=== PATIENT | female | born 1960 | race Caucasian/White ===

== ENCOUNTER 2020-09-03 09:54 | Inpatient (IN) ==
[2020-09-03 10:41] LABS: POC Blood Urea Nitrogen 4 mg/dL (6-20); POC CO2 24 mmol/L (22-30); POC Calcium, Ionized 1.07 mmEq/L (1.16-1.32); POC Chloride 74 mEq/L (96-108); POC Creatinine 0.4 mg/dL (0.6-1.2); POC Glucose, Random 108 mg/dL (70-105); POC Hematocrit 44 % (36-48); POC Potassium 3.8 mEql/L (3.3-5.1); POC Sodium 111 mEq/L (133-145)
--- NOTE | 2020-09-03 10:55 | Emergency Department Note ---
HPI General Chief complaint: Recheck/Abnormal Lab/Rx Stated complaint: low sodium Time Seen by Provider: 09/03/20 10:08 Source: patient Mode of arrival: ambulatory Limitations: no limitations History of Present Illness HPI Narrative: Patient is a 60-year-old lady who arrives the emergency department accompanied by her complaining of hyponatremia. History is provided by the patient and review of her medical records. Patient was seen in our emergency department yesterday for cough and shortness of breath. Labs were obtained but due to computer dysfunction the labs did not crossover into the charting system immediately. Her shortness of breath improved with nebulizer treatment and she was discharged home. Upon reviewing laboratory results this morning, I noted that the patient's sodium was 118. I called and asked her to come to the emergency department to have this rechecked. The patient does note that she has been feeling very tired lately and has had a few episodes of near syncope over the past few weeks. She says her breathing feels better today. She denies any headache or confusion and her has not noted any signs of confusion recently. She has never had anything like this before. She has been having normal oral intake and has not been outside in the heat very much. Related Data Home Medications Medication Instructions Recorded Confirmed ergocalciferol (vitamin D2) 50,000 unit PO WEEKLY 09/21/18 08/11/20 Previous Rx's Medication Instructions Recorded fluticasone propionate 50 2 spray INTRANASAL DAILY #36.4 ml 06/29/19 mcg/actuation nasal spray,suspension atorvastatin 20 mg tablet 20 mg PO HS #90 tab 11/26/19 metoprolol succinate 50 mg See Rx Instructions .ROUTE 04/24/20 tablet,extended release 24 hr .COMPLEX #90 tab omeprazole 40 mg capsule,delayed 40 mg PO QDAY #90 cap 04/27/20 release triamcinolone acetonide 0.5 % 1 applic TOPICAL BID #30 g 04/27/20 topical ointment venlafaxine 75 mg capsule,extended See Rx Instructions .ROUTE 05/04/20 release 24 hr .COMPLEX #90 cap albuterol sulfate 90 mcg/actuation See Rx Instructions .ROUTE 07/04/20 breath activated powder inhaler .COMPLEX #1 ea diltiazem HCl 300 mg 300 mg PO QAM #90 cap 08/11/20 capsule,extended release 24 hr mirabegron 25 mg tablet,extended 25 mg PO Q24H #30 tab 08/11/20 release 24 hr oxycodone-acetaminophen 10 mg-325 1 tab PO Q4-6HP PRN #150 tab 08/24/20 mg tablet gabapentin 600 mg tablet See Rx Instructions .ROUTE 09/01/20 .COMPLEX #90 tab albuterol sulfate 2 puff INHALATION Q4H PRN #6.7 g 09/02/20 prednisone 60 mg PO QDAY #15 tab 09/02/20 Allergies Allergy/AdvReac Type Severity Reaction Status Date / Time hydromorphone [From Dilaudid] Allergy Severe Unknown Verified 09/03/20 09:56 prednisone Allergy Intermediate Unknown Verified 09/03/20 09:56 Review of Systems ROS ROS Narrative: Narrative: All systems ED: reviewed and negative except as stated. Constitutional: Denies fever and chills Respiratory: Reports shortness of breath and cough Gastrointestinal: Denies abdominal pain, nausea and diarrhea PFSH Narrative Patient History Narrative: Narrative: Medical/Surgical/Family History All Active Problems (Updated 09/03/20 @ 11:15 by Meet Mcmanus DO) Acute bronchitis (Acute) Chronic hyponatremia (Acute) Nocturia (Acute) Cough (Acute) Menometrorrhagia (Chronic) Fatigue (Chronic) Menopausal symptoms (Chronic) Urticaria (Chronic) Dermatitis (Chronic) Anxiety (Chronic) Postmenopausal (Chronic) Sleep apnea (Chronic) Ankle pain (Chronic) Vitamin D deficiency (Chronic) Hyperlipidemia (Chronic) Headache (Chronic) Hypertension (Chronic) Smoker (Chronic) Urinary frequency (Chronic) Impaired fasting glucose (Chronic) Leg pain (Chronic) Chronic pain (Chronic) Encounter for long-term current use of medication (Chronic) Stress (Chronic) Complex regional pain syndrome i of left lower limb (Chronic) Physical exam (Chronic) Colonic polyp (Chronic) Medical History (Updated 09/03/20 @ 11:15 by Meet Mcmanus DO) Ankle pain Anxiety Chronic pain CHRONIC PAIN - ON DAILY NARCOTICS (ICD-338.29) (YYU42-S11.29) Colonic polyp Complex regional pain syndrome i of left lower limb Dermatitis Encounter for long-term current use of medication Fatigue Headache Hyperlipidemia Hypertension Impaired fasting glucose Leg pain Menometrorrhagia Menopausal symptoms Physical exam Postmenopausal Sleep apnea Smoker Stress Urinary frequency Urticaria Vitamin D deficiency Surgical History Ankle fracture, left (~2007) left ankle fracture, with surgical repair History of cholecystectomy History of total abdominal hysterectomy (~2007) Cervicle precancer Family History Family/Other , Aunt of pulmonary fibrosis, also had breast CA Breast CA Pulmonary fibrosis Mother , of pulmonary fibrosis, also had breast CA Pulmonary fibrosis Breast CA Family/Other , Cousin - ovarian cancer, 47 Ovarian cancer Father Alcoholism Grandfather Suicide Grandmother Murder Social History Smoking Status: Current every day smoker Alcohol Intake Frequency: a few times a week Substance Use: does not use Exam Narrative Narrative: Gen -patient is awake and alert and in no acute distress. HEENT -head is atraumatic. There is no conjunctival pallor or scleral icterus. CV -S1-S2 regular rate and rhythm. Resp -breathing is nonlabored. Lungs have mild rhonchi bilaterally with expiratory wheezes there is no cyanosis. Derm -skin is warm and dry. MSK -present extremities are atraumatic. Psych -patient has appropriate affect. Neuro -patient answers questions appropriately with fluent speech. Patient moves all present extremities equally. General Limitations: no limitations Course Vital Signs Vital signs: Vital Signs Temperature 97.0 F 09/03/20 09:54 Pulse Rate 87 09/03/20 09:54 Respiratory Rate 18 09/03/20 09:54 Blood Pressure 155/77 09/03/20 09:54 Pulse Oximetry (%) 96 09/03/20 09:54 Temperature 97.0 F 09/03/20 09:54 Pulse Rate 75 09/03/20 10:28 Respiratory Rate 22 09/03/20 10:28 Blood Pressure 155/77 09/03/20 09:54 Pulse Oximetry (%) 96 09/03/20 09:54 [facility] MDM Narrative Medical decision making narrative: Patient presents with hyponatremia. She has been having some intermittent fatigue lately but otherwise has no symptoms consistent with neurocognitive effects from the hyponatremia at this time. I discussed the test results with the patient and her . She is agreeable with the plan for admission and gradual correction of her sodium. I discussed the patient's history examination and diagnostic findings with Dr. Couch, who agrees with the plan of care and accepts admission. I did not provide any separately billable critical care time. Lab Data Result diagrams: 09/03/20 10:18 Labs: Lab Results 09/03/20 Range/Units 10:18 POC Hct 44 (36-48) % POC Sodium 111 L* (133-145) mEq/L POC Potassium 3.8 (3.3-5.1) mEql/L POC Chloride 74 L (96-108) mEq/L POC Total CO2 24 (22-30) mmol/L POC BUN 4 L (6-20) mg/dL POC Creatinine 0.4 L (0.6-1.2) mg/dL POC Glucose 108 H (70-105) mg/dL POC WB Ioniz Calcium 1.07 L (1.16-1.32) mmEq/L EKG Data EKG #1: EKG attestation: Yes I reviewed and interpreted this EKG. EKG results narrative: EKG performed at 11:07 AM: Sinus rhythm, rate 81. Normal P wave QRS and T wave morphology. No ST segment deviation. Normal IA QRS and QTc duration. No old EKG immediately available for comparison. EKG was interpreted by me. Discharge Plan Patient/Caregiver Discharge Instructions Pt seen by [facility]ER/PA only: No Clinical Impression: Chronic hyponatremia Patient Disposition: Xfer Acute Care Hospital Condition: Fair Follow up with: Kayy Moore ARNP [Primary Care Provider] - Prescriptions: No Action fluticasone propionate 50 mcg/actuation spray,suspension 2 spray INTRANASAL DAILY Qty: 36.4 RF: 1 atorvastatin 20 mg tablet 20 mg PO HS Qty: 90 RF: 3 metoprolol succinate 50 mg tablet extended release 24 hr See Rx Instructions .ROUTE .COMPLEX Qty: 90 RF: 2 venlafaxine 75 mg capsule,extended release 24hr See Rx Instructions .ROUTE .COMPLEX Qty: 90 RF: 1 ProAir RespiClick 90 mcg/actuation aerosol powdr breath activated See Rx Instructions .ROUTE .COMPLEX Qty: 1 RF: 1 oxycodone-acetaminophen 10-325 mg tablet 1 tab PO Q4-6HP PRN (Reason: Pain) Qty: 150 RF: 0 gabapentin 600 mg tablet See Rx Instructions .ROUTE .COMPLEX Qty: 90 RF: 0 omeprazole 40 mg capsule,delayed release(DR/EC) 40 mg PO QDAY Qty: 90 RF: 3 triamcinolone acetonide 0.5 % ointment 1 applic topical BID Qty: 30 RF: 1 Myrbetriq 25 mg tablet extended release 24 hr 25 mg PO Q24H Qty: 30 RF: 3 diltiazem HCl 300 mg capsule,extended release 24hr 300 mg PO QAM Qty: 90 RF: 3 ergocalciferol (vitamin D2) 50,000 UNIT capsule 50,000 unit PO WEEKLY RF: 0 albuterol sulfate 90 mcg/actuation HFA aerosol inhaler 2 puff inhalation Q4H PRN (Reason: shortness of breath or wheezing) Qty: 6.7 RF: 0 prednisone 20 mg tablet 60 mg PO QDAY Qty: 15 RF: 0
[2020-09-03 11:37] LABS: Basophils # (Auto) 0.03 K/mcL (0.00-0.20); Basophils % (Auto) 0.2 % (0.0-2.0); Eosinophils # (Auto) 0.11 K/mcL (0.00-0.70); Eosinophils % (Auto) 0.6 % (0.0-7.0); Hematocrit 38.2 % (36.0-48.0); Hemoglobin 13.5 g/dL (12.0-15.0); Lymphocytes % (Auto) 17.4 % (15.0-49.0); Mean Cell Volume 88.2 fL (80.0-100.0); Mean Corpuscular HGB Conc 35.3 g/dL (31.0-36.0); Monocytes # (Auto) 1.14 K/mcL (0.10-0.90); Monocytes % (Auto) 6.6 % (1.0-12.0); Neutrophils % (Auto) 75.2 % (38.0-78.0); Platelet Count 298 K/mcL (140-440); RBC 4.33 M/mcL (4.00-5.20); Red Cell Distribution Width 11.4 % (11.5-14.5); WBC 17.2 K/mcL (4.5-11.0)
[2020-09-03] MEDS ORDERED: ONDANSETRON 4 MG/2 ML VIAL IV PRN (13:11)
[2020-09-03] MEDS ORDERED: 0.9 % SODIUM CHLORIDE 1,000 ML IV SCH ×2 (13:11→18:30)
[2020-09-03] MEDS: 0.9 % SODIUM CHLORIDE 10 ML SYRINGE IV SCH ×2 (13:28→22:00)
[2020-09-03] MEDS ORDERED: IPRATROPIUM/ALBUTEROL 3 ML AMPUL.NEB NEB PRN (13:50)
[2020-09-03 15:32] LABS: Sodium, Urine Random 12 mmol/L
[2020-09-03 15:38] LABS: Osmolality,Urine 140 mOSM/kg (80-1000)
[2020-09-03 16:10] LABS: Blood Urea Nitrogen 4 mg/dL (6-20); Carbon Dioxide 27 mmol/L (22-30); Chloride 73 mmol/L (96-108); Glomerular Filtration Rate 114; Glucose 102 mg/dL (70-105)
[2020-09-03] MEDS ORDERED: oxyCODONE/APAP 10/325MG TABLET PO PRN (16:17)
[2020-09-03] MEDS ORDERED: LABETALOL 5 MG/ML ML IV PRN (16:24)
[2020-09-03] MEDS ORDERED: SODIUM CHLORIDE 3 % 500 ML IV SCH (16:30)
[2020-09-03] MEDS ORDERED: MIRABEGRON 25 MG PO SCH (16:30)
[2020-09-03] MEDS ORDERED: ALBUTEROL SULFATE 2.5 MG/3 ML NEBULIZER NEB PRN (16:34)
--- NOTE | 2020-09-03 16:34 | Internal Med History&Physical ---
HPI History of Present Illness Patient information: Note initiated : 09/03/20 at 4:31 pm Service Date, if different from initiated Date: [] Patient: Radha Valencia a 60 y/o F admitted on 09/03/20 for low sodium. Chief Complaint: [] History of present illness: Ms. Valencia is a 60 year old female history of laryngeal mass status post resection ago, hypertension, hyperlipidemia, chronic pain, GERD, depression who presented to the emergency department yesterday for shortness of breath. Patient was discharged to home with steroids and inhalers, laboratory work-up revealed severe hyponatremia therefore the patient was called to return to the emergency department and subsequently relation and management. Patient says that she has been feeling chronically more short of breath for about and that has been associated with severe fatigue and daytime sleepiness. She has also been experiencing bilateral lower extremity edema. In the emergency department, patient's vitals were stable on room air. After admission, she did have hypoxia when she fell asleep therefore placed on some oxygen supplementation. The patient feels generally unwell, her main complaint is shortness of breath. Review of systems Constitutional: positive for fatigue Eyes: no vision changes or pain Cardiovascular: no chest pain, no palpitations Respiratory: positive for dyspnea Gastrointestinal: no abdominal pain, no nausea, vomiting, or diarrhea Genitourinary: no dysuria or difficulty voiding Musculoskeletal: positive for lower extremity edema Integumentary: no skin lesion or wound Neurological: no focal weakness or numbness Psychiatric: no anxiety or depression Physical exam Head: Atraumatic, normal inspection. Eyes: normal appearance, no scleral icterus. Neck: full ROM Respiratory: Expiratory wheezes, no respiratory distress. Cardiovascular: normal rate and rhythm, S1, S2. GI/Abdominal: protuberant abdomen, soft, nontender, no guarding. Extremities: mild bilateral lower extermity edema Neurological: CN II-XII intact, intact motor, intact sensation. Psychiatric: normal mood. Skin: warm, normal color PFSH PFSH All Active Problems (Updated 09/03/20 @ 11:15 by Meet Mcmanus DO) Acute bronchitis (Acute) Chronic hyponatremia (Acute) Nocturia (Acute) Cough (Acute) Menometrorrhagia (Chronic) Fatigue (Chronic) Menopausal symptoms (Chronic) Urticaria (Chronic) Dermatitis (Chronic) Anxiety (Chronic) Postmenopausal (Chronic) Sleep apnea (Chronic) Ankle pain (Chronic) Vitamin D deficiency (Chronic) Hyperlipidemia (Chronic) Headache (Chronic) Hypertension (Chronic) Smoker (Chronic) Urinary frequency (Chronic) Impaired fasting glucose (Chronic) Leg pain (Chronic) Chronic pain (Chronic) Encounter for long-term current use of medication (Chronic) Stress (Chronic) Complex regional pain syndrome i of left lower limb (Chronic) Physical exam (Chronic) Colonic polyp (Chronic) Medical History (Updated 09/03/20 @ 11:15 by Meet Mcmanus DO) Ankle pain Anxiety Chronic pain CHRONIC PAIN - ON DAILY NARCOTICS (ICD-338.29) (HNJ01-U08.29) Colonic polyp Complex regional pain syndrome i of left lower limb Dermatitis Encounter for long-term current use of medication Fatigue Headache Hyperlipidemia Hypertension Impaired fasting glucose Leg pain Menometrorrhagia Menopausal symptoms Physical exam Postmenopausal Sleep apnea Smoker Stress Urinary frequency Urticaria Vitamin D deficiency Surgical History Ankle fracture, left (~2007) left ankle fracture, with surgical repair History of cholecystectomy History of total abdominal hysterectomy (~2007) Cervicle precancer Family History Family/Other , Aunt of pulmonary fibrosis, also had breast CA Breast CA Pulmonary fibrosis Mother , of pulmonary fibrosis, also had breast CA Pulmonary fibrosis Breast CA Family/Other , Cousin - ovarian cancer, 47 Ovarian cancer Father Alcoholism Grandfather Suicide Grandmother Murder Social History (Updated 08/11/20 @ 08:35 by Man Harris CMA) marital status: occupational status: employed occupation: works at [employer] physical activity: walking frequency: 1-2 times per week smoking status: Current every day smoker alcohol intake frequency: a few times a week substance use type: does not use MEDS/ALLERGIES Home Medications and Allergies Home Medications Medication Instructions Recorded Confirmed Type fluticasone propionate 50 2 spray INTRANASAL DAILY #36.4 ml 06/29/19 09/03/20 Rx mcg/actuation nasal spray,suspension atorvastatin 20 mg tablet 20 mg PO HS #90 tab 11/26/19 09/03/20 Rx metoprolol succinate 50 mg See Rx Instructions .ROUTE 04/24/20 09/03/20 Rx tablet,extended release 24 hr .COMPLEX #90 tab omeprazole 40 mg capsule,delayed 40 mg PO QDAY #90 cap 04/27/20 09/03/20 Rx release venlafaxine 75 mg capsule,extended See Rx Instructions .ROUTE 05/04/20 09/03/20 Rx release 24 hr .COMPLEX #90 cap albuterol sulfate 90 mcg/actuation See Rx Instructions .ROUTE 07/04/20 09/03/20 Rx breath activated powder inhaler .COMPLEX #1 ea diltiazem HCl 300 mg 300 mg PO QAM #90 cap 08/11/20 09/03/20 Rx capsule,extended release 24 hr mirabegron 25 mg tablet,extended 25 mg PO Q24H #30 tab 08/11/20 09/03/20 Rx release 24 hr oxycodone-acetaminophen 10 mg-325 1 tab PO Q4-6HP PRN #150 tab 08/24/20 09/03/20 Rx mg tablet gabapentin 600 mg tablet See Rx Instructions .ROUTE 09/01/20 09/03/20 Rx .COMPLEX #90 tab albuterol sulfate 2 puff INHALATION Q4H PRN #6.7 g 09/02/20 09/03/20 Rx prednisone 60 mg PO QDAY #15 tab 09/02/20 09/03/20 Rx Allergies Allergy/AdvReac Type Severity Reaction Status Date / Time hydromorphone [From Dilaudid] Allergy Unknown Unknown Verified 09/03/20 13:14 prednisone Allergy Unknown Unknown Verified 09/03/20 13:14 EXAM Constitutional Vitals: Temp Pulse Resp BP Pulse Ox 98.2 F 97 H 15 180/92 97 09/03/20 16:07 09/03/20 16:24 09/03/20 16:07 09/03/20 16:07 09/03/20 16:24 DATA Data Completed and Pending Labs: Labs from last 24 hours 09/03/20 09/03/20 09/03/20 14:30 13:27 11:15 WBC RBC Hgb Hct POC Hct MCV MCH MCHC RDW Plt Count MPV Neut % (Auto) Lymph % (Auto) Rush % (Auto) Eos % (Auto) Baso % (Auto) Lymph # (Auto) Rush # (Auto) Eos # (Auto) Baso # (Auto) Absolute Neutrophils POC Sodium Sodium 109 L* POC Potassium Potassium 3.9 POC Chloride Chloride 73 L Carbon Dioxide 27 POC Total CO2 Anion Gap 9.0 POC BUN BUN 4 L Creatinine 0.4 L POC Creatinine GFR Calculation 114 Glucose 102 POC Glucose Calcium 9.0 POC WB Ioniz Calcium Magnesium 1.8 Urine Osmolality 140 Ur Random Sodium 12 40 09/03/20 09/03/20 10:18 10:18 WBC 17.2 H RBC 4.33 Hgb 13.5 Hct 38.2 POC Hct 44 MCV 88.2 MCH 31.2 MCHC 35.3 RDW 11.4 L Plt Count 298 MPV 9.0 Neut % (Auto) 75.2 Lymph % (Auto) 17.4 Rush % (Auto) 6.6 Eos % (Auto) 0.6 Baso % (Auto) 0.2 Lymph # (Auto) 3.00 Rush # (Auto) 1.14 H Eos # (Auto) 0.11 Baso # (Auto) 0.03 Absolute Neutrophils 12.95 H POC Sodium 111 L* Sodium POC Potassium 3.8 Potassium POC Chloride 74 L Chloride Carbon Dioxide POC Total CO2 24 Anion Gap POC BUN 4 L BUN Creatinine POC Creatinine 0.4 L GFR Calculation Glucose POC Glucose 108 H Calcium POC WB Ioniz Calcium 1.07 L Magnesium Urine Osmolality Ur Random Sodium A/P Narrative A/P Narrative: Assessment: 60 year old female history of laryngeal mass status post resection about a year ago (patient says mass was benign), hypertension, hyperlipidemia, chronic pain, GERD, depression, obesity, approximately 35 pack year smoking history who initially presented to the emergency department for progressive shortness of breath then found to have severe hyponatremia. #Severe hyponatremia, near euvolemia #Hypoxic respiratory failure #Possible COPD #Right periorbital edema from fall #Hypertension #Hyperlipidemia #Possible obstructive sleep apnea #GERD #Overactive bladder. #Depression #Chronic pain #Tobacco use disorder #Obesity Plan -Start with 3% saline, follow sodium Q4 hrs, avoid correction > 8 mEq/ 24 hrs. -Check TSH and morning cortisol, serum osmolality, urine sodium and osmolality -CT neck to evaluate for possible laryngeal mass recurrence. -Check d-dimer-if elevated will get a CTA chest -TTE ECHO -UA and urine protein:creatine ratio -Scheduled duonebs and albuterol nebs prn -Continue home Toprol, Diltiazem, Atorvastatin, Gabapentin, Percacet prn, Prilosec, Mirabegron, Venlafaxine. -DVT ppx: Lovenox SQ -Code status: Full -Disposition: home Time Spent With Patient Time: Total time spent is greater than 50% in coordination of care (as documented) at patient's floor/unit and/or counseling patient: QUALITY VTE Deep Vein Thrombosis/Pulmonary Embolism Present on Admission: No
[2020-09-03] MEDS: LORazepam 2 MG/ML VIAL IV PRN ×2 (18:40→22:40)
[2020-09-03] MEDS ORDERED: LORazepam 2 MG/ML VIAL ONE (18:40)
[2020-09-03] MEDS: IPRATROPIUM/ALBUTEROL 3 ML AMPUL.NEB NEB SCH ×2 (19:10→23:46)
[2020-09-03] MEDS ORDERED: ALBUTEROL SULFATE 2.5 MG/3 ML NEBULIZER ONE (19:28)
[2020-09-03] MEDS ORDERED: methylPREDNISolone SOD SUCC 125 MG/2 ML VIAL IV ONE ×2 (19:34→20:24)
[2020-09-03] MEDS ORDERED: IOPAMIDOL 100 ML BOTTLE IV ONE (20:06)
[2020-09-03] MEDS ORDERED: KETAMINE 100 MG/ML ML ONE (20:17)
[2020-09-03] MEDS ORDERED: MIDAZOLAM HCL 10 MG/2 ML VIAL ONE (20:17)
[2020-09-03] MEDS ORDERED: ROCURONIUM 10 MG/ML ML IV ONE (20:17)
[2020-09-03] MEDS ORDERED: methylPREDNISolone SOD SUCC 125 MG/2 ML VIAL ONE (20:23)
[2020-09-03] MEDS: HALOPERIDOL LACTATE 5 MG/ML VIAL IV PRN ×2 (20:35→22:40)
[2020-09-03] MEDS ORDERED: HALOPERIDOL LACTATE 5 MG/ML VIAL ONE (20:35)
[2020-09-03] MEDS ORDERED: ATORVASTATIN 20 MG TABLET PO SCH (21:00)
[2020-09-03] MEDS: DOCUSATE SODIUM 100 MG CAPSULE PO SCH (21:00)
[2020-09-03] MEDS: GABAPENTIN 300 MG CAPSULE PO SCH (21:00)
[2020-09-03] MEDS ORDERED: SENNOSIDES 1 TABLET PO SCH (21:00)
--- NOTE | 2020-09-03 21:11 | Procedure Note ---
Procedures - Feeding Tube Replacement Type of tube: nasogastric Date of Procedure: 09/03/20 Insertion site prior to procedure: clean Tube used for reinsertion: Bard [place] Tube Size (F): 18 Verification of placement: other (CXR) Tube secured by: tape/dressing Patient tolerated procedure: well, no complications Additional comments: NGT requested prior to CXR for ETT placement, done without difficulty. CXR shows good placement intragastric, pulled to 70 cm. - Intubation Time out performed: Yes Date of Procedure: 09/03/20 Sedative: Ketamine Mg given: 100 (Versed 10 mg) Paralytic: Rocuronium ETT: ETCO2, BBS Mg given: 60 Assist device used: glide Vocal Cord View: 1 ET tube size: 6 ET tube uncuffed: No Tube secured depth (cm): 22 Tube secured location: lips Tube placement confirmation: visualized tube passing through cords, equal breath sounds bilaterally, no breath sounds over epigastrium, confirmation by capnometry # of Attempts: 2 Patient tolerated procedure: well Intubation complications: difficult intubation, hypoxia Additional comments: Hospitalist call/Ficek, emergent anticipated difficult intubation in ICU, admitted for severe hyponatremia/ALOC/stridor and progressive resp insufficiency and history of surgical laryngeal mass excision/resection. Sage, drugs, initial call for 6.0 ETT>>proceed with induction and attempt with 7.0>>unsuccessful, difficult bag ventilation with desats/pt dusky for 15-20 seconds until attempt with 6.0 tube. Was tight at cords with regional friable and abnormal landmarked tissue but passed. Immediate sat response/pink. R nare NGT passed as well. CXR checked, both in good position.
[2020-09-03] MEDS ORDERED: DEXTROSE 5% IN WATER 1,000 ML IV SCH ×2 (21:45→22:30)
[2020-09-03] MEDS: DEXMEDETOMIDINE 400 MCG in PREMIX 1 BAG IV SCH (21:45)
[2020-09-03] MEDS ORDERED: DEXMEDETOMIDINE 100 ML IV ONE (21:46)
[2020-09-04] MEDS ORDERED: DEXTROSE 5% IN WATER 1,000 ML IV SCH ×5 (01:45→16:05)
--- NOTE | 2020-09-04 01:56 | EKG ---
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 Measurements Intervals [place] Rate: 81 P: 30 MT: 192 QRS: 36 QRSD: 100 T: 46 QT: 377 QTc: 438 Interpretive Statements Sinus rhythm CONSIDER LEFT ATRIAL ABNORMALITY Since previous ECG of 09-02-2020, NSC ABNORMAL ECG Electronically Signed On 09-04-2020 1:56:04 PDT by Yaakov Katz M.D. /store/M0/[id number]
[2020-09-04] MEDS: HALOPERIDOL LACTATE 5 MG/ML VIAL IV PRN (04:03)
[2020-09-04] MEDS: DEXMEDETOMIDINE 400 MCG in PREMIX 1 BAG IV SCH ×3 (04:34→21:30)
[2020-09-04] MEDS: LORazepam 2 MG/ML VIAL IV PRN (05:09)
[2020-09-04] MEDS ORDERED: fentaNYL 100 MCG/2 ML VIAL IV ONE (05:29)
[2020-09-04] MEDS: fentaNYL 100 MCG/2 ML VIAL IV PRN ×5 (05:29→20:49)
[2020-09-04 05:56] LABS: Basophils # (Auto) 0 K/mcL (0.00-0.20); Basophils % (Auto) 0 % (0.0-2.0); Eosinophils # (Auto) 0 K/mcL (0.00-0.70); Eosinophils % (Auto) 0 % (0.0-7.0); Hematocrit 39.6 % (36.0-48.0); Hemoglobin 13.9 g/dL (12.0-15.0); Lymphocytes # (Auto) 0.63 K/mcL (1.50-4.80); Lymphocytes % (Auto) 6.5 % (15.0-49.0); Mean Cell Volume 86.8 fL (80.0-100.0); Mean Corpuscular HGB Conc 35.1 g/dL (31.0-36.0); Mean Platelet Volume 8.9 fL (7.4-10.4); Monocytes # (Auto) 0.24 K/mcL (0.10-0.90); Monocytes % (Auto) 2.5 % (1.0-12.0); Platelet Count 287 K/mcL (140-440); RBC 4.56 M/mcL (4.00-5.20); Red Cell Distribution Width 11.8 % (11.5-14.5); WBC 9.7 K/mcL (4.5-11.0)
[2020-09-04] MEDS: 0.9 % SODIUM CHLORIDE 10 ML SYRINGE IV SCH ×3 (06:29→21:04)
[2020-09-04] MEDS: IPRATROPIUM/ALBUTEROL 3 ML AMPUL.NEB NEB SCH (07:02)
[2020-09-04] MEDS ORDERED: DESMOPRESSIN ACETATE 2 MCG in 0.9 % SODIUM CHLORIDE 50 ML IV ONE (07:12)
[2020-09-04] MEDS ORDERED: OMEPRAZOLE 20 MG CAPSULE PO SCH (07:30)
--- NOTE | 2020-09-04 08:14 | Cat Scan Report ---
History: Respiratory distress with hoarseness and stridor TECHNIQUE: Following injection of intravenous nonionic contrast the patient was scanned during the pulmonary arterial phase from the thoracic inlet to the diaphragms. Sagittal, coronal and axial MIPS images were created. The radiation exposure was limited using dose reduction technology. FINDINGS: The patient was technically difficult to scan due to his inability to cooperate and follow instructions. There was significant respiration motion artifact. The timing of the bolus was also suboptimal, with much of the contrast already in the left heart and aorta. The central pulmonary arteries are normal with no intraluminal filling defects. The small peripheral arteries are more difficult to visualize but there is no gross evidence of pulmonary embolus. Mild dependent atelectasis is present posteriorly in both lungs. Lung volumes are normal. There is no consolidation or edema mass or pleural effusion. There is severe narrowing of the distal right mainstem bronchus with moderate narrowing on the left. The luis of these bronchi do not appear to be thickened and there is no intraluminal mass or mucous plugging. The trachea is normal. The heart size is normal. Aorta is normal in caliber. There is no significant plaque formation in the aorta nor coronary arteries. No adenopathy is present. IMPRESSION: No evidence of pulmonary emboli, however the small peripheral vessels are suboptimally visualized. Narrowing of the left and right mainstem bronchi. This can sometimes be seen in normal people during expiration. However, it is also associated with tracheobronchomalacia. Dr. Couch was called with the report Interpreted and Authenticated by: Kevin Goodwin 09/04/20
--- NOTE | 2020-09-04 08:23 | Cat Scan Report ---
History: Difficulty breathing with hoarseness and stridor, evaluate for neck mass TECHNIQUE: Following injection of intravenous nonionic contrast the patient was scanned from the skull base through the thoracic inlet at 2.5 mm intervals. Sagittal and coronal reformats were created. The radiation exposure was limited using dose reduction technology. FINDINGS: The patient was unable to follow instructions or old her breath during the exam. As result, there is significant respiration motion artifact in the larynx. There is no gross evidence of laryngeal mass or airway narrowing. The oral cavity, hypopharynx and trachea appear normal. No neck mass or adenopathy are detected. The salivary glands are normal and symmetric. Parapharyngeal spaces are normal. Adenoid tonsils are mildly prominent but there is no evidence of inflammation. There is degenerative disc disease and arthritis throughout the neck with the greatest degeneration at C5-6 and C6-7. Patient is partially edentulous and has several caries. IMPRESSION: Limited exam due to motion artifact. No abnormality is detected to explain the patient's respiratory distress. Interpreted and Authenticated by: Kevin Goodwin 09/04/20
--- NOTE | 2020-09-04 08:27 | XRay Report ---
HISTORY: Respiratory distress and intubated FINDINGS: An endotracheal tube has been inserted. The tip lies 5.7 cm above the alison and is at the level of the head of the clavicles. There is a nasogastric tube in the stomach. The lungs are clear. There is no pneumothorax or pleural effusion. Mediastinum and ariadne are normal. IMPRESSION: No complication following intubation Interpreted and Authenticated by: Keivn Goodwin 09/04/20
[2020-09-04] MEDS ORDERED: DILTIAZEM 120 MG CAP.XL.24H PO SCH (09:00)
[2020-09-04] MEDS ORDERED: DILTIAZEM 180 MG CAP.XL.24H PO SCH (09:00)
[2020-09-04] MEDS ORDERED: ENOXAPARIN 40 MG/0.4 ML SYRINGE SQ SCH (09:00)
[2020-09-04] MEDS ORDERED: THIAMINE 100 MG in 0.9 % SODIUM CHLORIDE 50 ML IV SCH (09:00)
[2020-09-04] MEDS ORDERED: VENLAFAXINE 75 MG CAP.XL.24H PO SCH (09:00)
[2020-09-04] MEDS ORDERED: FOLIC ACID 1 MG TABLET PO SCH (09:00)
[2020-09-04] MEDS ORDERED: methylPREDNISolone SOD SUCC 40 MG/ML VIAL IV SCH (09:00)
[2020-09-04] MEDS ORDERED: METOPROLOL SUCCINATE 50 MG TAB.XL.24H PO SCH (09:00)
[2020-09-04] MEDS ORDERED: CHLORHEXIDINE GLUCONATE 1 ML ORAL.SOL SWABMOUTH SCH (09:00)
[2020-09-04] MEDS: GABAPENTIN 300 MG CAPSULE PO SCH ×3 (11:21→21:00)
[2020-09-04] MEDS ORDERED: METOPROLOL TARTRATE 50 MG TABLET PO SCH (12:30)
[2020-09-04 12:32] LABS: ABG PH 7.41
[2020-09-04 12:33] LABS: ABG Base Excess 2; ABG HCO3 26.7; ABG Methemoglobin 0.3; ABG Oxygen Saturation 92.3; Total Hemoglobin 13.7
[2020-09-04 12:39] LABS: Creatinine, Spot Urine 114.1 mg/dL (28.0-217.0); Pro:Crea Ratio 0.22 (<0.20)
[2020-09-04] MEDS: DOCUSATE SODIUM 100 MG CAPSULE PO SCH (13:40)
[2020-09-04] MEDS ORDERED: LORazepam 2 MG/ML VIAL IV ONE (14:04)
[2020-09-04] MEDS ORDERED: LORazepam 2 MG/ML VIAL IV SCH (14:15)
[2020-09-04] MEDS ORDERED: HALOPERIDOL LACTATE 5 MG/ML VIAL IV PRN (16:05)
[2020-09-04] MEDS ORDERED: IPRATROPIUM/ALBUTEROL 3 ML AMPUL.NEB NEB SCH (16:05)
[2020-09-04] MEDS ORDERED: ALBUTEROL SULFATE 2.5 MG/3 ML NEBULIZER NEB PRN (16:05)
[2020-09-04] MEDS ORDERED: ONDANSETRON 4 MG/2 ML VIAL IV PRN (16:05)
[2020-09-04] MEDS ORDERED: LABETALOL 5 MG/ML ML IV PRN (16:05)
[2020-09-04] MEDS ORDERED: IOPAMIDOL 100 ML BOTTLE IV ONE (16:05)
[2020-09-04] MEDS ORDERED: ROCURONIUM 10 MG/ML ML IV ONE (16:05)
[2020-09-04] MEDS ORDERED: oxyCODONE/APAP 10/325MG TABLET PO PRN (16:05)
[2020-09-04] MEDS ORDERED: KETAMINE 100 MG/ML ML ONE (16:05)
[2020-09-04] MEDS ORDERED: MIDAZOLAM HCL 10 MG/2 ML VIAL ONE (16:05)
[2020-09-04] MEDS ORDERED: 0.9 % SODIUM CHLORIDE 1,000 ML IV SCH (17:30)
--- NOTE | 2020-09-04 18:06 | Internal Med Progress Note ---
SUBJECTIVE Subjective Patient information: Note initiated : 09/04/20 at 6:06 pm Service Date, if different from initiated Date: [] Patient: Radha Valencia a 60 y/o F admitted on 09/03/20 for low sodium. Chief Complaint: [] Interval history: Ms. Valencia is a 60 year old female history of bilateral Patrick's edema and left vocal cord nodule s/p resection, hypertension, hyperlipidemia, chronic pain, GERD, depression, alcohol use disorder who presented to the emergency department yesterday for shortness of breath. Patient was discharged to home with steroids and inhalers, laboratory work-up revealed severe hyponatremia therefore the patient was called to return to the emergency department and subsequently relation and management. Patient says t hat she has been feeling chronically more short of breath for about and that has been associated with severe fatigue and daytime sleepiness. She has also been experiencing bilateral lower extremity edema. In the emergency department, patient's vitals were stable on room air. After admission, she did have hypoxia when she fell asleep therefore placed on some oxygen supplementation. The patient feels generally unwell, her main complaint is shortness of breath. 09/04 Yesterday the patient developed progressively worsening dyspnea and difficulty breathing and required intubation for airway protection. The intubation was difficult and performed by anesthesiology under direct visualization with a GlideScope that showed friable tissue and abnormal landmarks. A #6 endotracheal tube was required for difficult tube placement. The patient was placed on PRVC ventilation mode and Precedex for sedation, she had been ventilating and oxygenating well on minimal ventilator settings. Today decreased TV to 350, RR continues at 18 (slightly overbreathing), FIO2 30 and PEEP 8. Sodium correction slowed today with D5 and also one dose of Desmopressin. Collateral information family confirms a history of heavy alcohol intake which could explain hyponatremia as sodium corrected easily with IV fluid. Possible alcohol withdrawal today therefore started scheduled Ativan IV while on Precedex infusion. Anesthesia recommends against attempts at extubation and instead a tracheostomy. Multiple facilities contacted for transfer to a higher level of care. Physical exam Head: Atraumatic, normal inspection. Eyes: right periorbital edema improved from admission. Neck: full ROM Respiratory: Intubated and mechanically ventilated. Cardiovascular: normal rate and rhythm, S1, S2. GI/Abdominal: protuberant abdomen, soft, nontender, no guarding. : Robles catheter Extremities: mild bilateral lower extremity edema Neurological: CN II-XII intact, follows commands and intact motor during sedation vacation Skin: warm, normal color Constitutional Vitals: Vital Signs Temp Pulse Resp BP Pulse Ox 97.8 F 82 19 162/95 98 09/04/20 16:01 09/04/20 07:48 09/04/20 17:35 09/04/20 16:01 09/04/20 17:35 Period Temp Pulse Resp BP Sys/Macias Pulse Ox Last 24 Hr 97.3 F-98.4 F 82-117 14-40 109-187/60-106 97-100 Intake and Output 09/04/20 09/04/20 09/04/20 05:59 13:59 21:59 Intake Total 174 684.5 517 Output Total 1275 981 174 Balance -1101 -296.5 343 Weight 79.787 kg Patient Weight 09/05/20 05:59 Weight 79.787 kg Intake & Output: Intake & Output 09/04/20 09/04/20 09/04/20 05:59 13:59 21:59 Intake Total 174 684.5 517 Output Total 1275 981 174 Balance -1101 -296.5 343 Weight 79.787 kg Intake: IV 174 684.5 517 Ddavp 2 Mcg In Sodium Chloride 50.5 0.9% 50 ml @ 200 mls/hr IV ONCE ONE Rx#:[id number] Precedex 400 Mcg/100 ml 96 83 17 Dextrose 400 Mcg In Premix 1 Bag @ 0.2 MCG/KG/HR 4.121 mls/ hr IV .Q24H [facility] Rx#:[id number] Dextrose 5% in Water 1,000 ml @ 78 500 500 50 mls/hr IV .Q20H [facility] Rx#: [id number] Vitamin B1 100 mg In Sodium 51 Chloride 0.9% 50 ml @ 50 mls/hr IV DAILY [facility] Rx#:[id number] Tube Feeding 0 Output: Gastric Drainage 500 400 125 NG/OG 500 400 125 Urine Catheter Amount 775 581 49 Other: Urine Appearance Clear Clear Uretheral (Robles) Clear Urine Color Pale Bright Yellow Uretheral (Robles) Pale OBJ DATA Labs CBC & Chem 7: 09/04/20 04:53 09/04/20 14:00 Labs: Abnormal Lab Results 09/04/20 09/04/20 09/04/20 14:00 12:13 10:24 WBC RDW Neut % (Auto) Lymph % (Auto) Lymph # (Auto) [place] # (Auto) Absolute Neutrophils D-Dimer POC Sodium Sodium 115 L* 118 L* 119 L* POC Chloride Chloride POC BUN BUN Creatinine POC Creatinine POC Glucose Osmolality POC WB Ioniz Calcium U [place] Prot/Creat Ratio 09/04/20 09/04/20 09/04/20 09:09 08:00 05:52 WBC RDW Neut % (Auto) Lymph % (Auto) Lymph # (Auto) [place] # (Auto) Absolute Neutrophils D-Dimer POC Sodium Sodium 118 L* 120 L POC Chloride Chloride POC BUN BUN Creatinine POC Creatinine POC Glucose Osmolality POC WB Ioniz Calcium U [place] Prot/Creat Ratio 0.22 H 09/04/20 09/04/20 09/04/20 04:53 02:45 00:33 WBC RDW Neut % (Auto) 91.0 H Lymph % (Auto) 6.5 L Lymph # (Auto) 0.63 L [place] # (Auto) Absolute Neutrophils 8.83 H D-Dimer POC Sodium Sodium 118 L* 119 L* POC Chloride Chloride POC BUN BUN Creatinine POC Creatinine POC Glucose Osmolality POC WB Ioniz Calcium U [place] Prot/Creat Ratio 09/03/20 09/03/20 09/03/20 20:30 16:38 14:30 WBC RDW Neut % (Auto) Lymph % (Auto) Lymph # (Auto) [place] # (Auto) Absolute Neutrophils D-Dimer 0.61 H POC Sodium Sodium 116 L* 109 L* POC Chloride Chloride 73 L POC BUN BUN 4 L Creatinine 0.4 L POC Creatinine POC Glucose Osmolality 271 L POC WB Ioniz Calcium U [place] Prot/Creat Ratio 09/03/20 09/03/20 10:18 10:18 WBC 17.2 H RDW 11.4 L Neut % (Auto) Lymph % (Auto) Lymph # (Auto) [place]igs # (Auto) 1.14 H Absolute Neutrophils 12.95 H D-Dimer POC Sodium 111 L* Sodium POC Chloride 74 L Chloride POC BUN 4 L BUN Creatinine POC Creatinine 0.4 L POC Glucose 108 H Osmolality POC WB Ioniz Calcium 1.07 L U [place] Prot/Creat Ratio Meds: Medications Albuterol Sulfate (Albuterol Sulfate 2.5 Mg/3 Ml Nebulizer) 2.5 mg NEB Q2HP PRN PRN Reason: Shortness Of Breath Albuterol/Ipratropium (Ipratropium/Albuterol 3 Ml Ampul.Neb) 3 ml NEB Q4HP [facility] Atorvastatin Calcium (Atorvastatin 20 Mg Tablet) 20 mg PO HS [facility] Chlorhexidine Gluconate (Chlorhexidine Gluconate 1 Ml Oral.Shannan) 15 ml SWABMOUTH BID [facility] Enoxaparin Sodium (Enoxaparin 40 Mg/0.4 Ml Syringe) 40 mg SQ DAILY [facility] Fentanyl (Fentanyl 100 Mcg/2 Ml Vial) 0 mcg IV Q1HP PRN; Protocol PRN Reason: Per Pain Protocol Last Admin: 09/04/20 17:05 Dose: 50 mcg Documented by: Folic Acid (Folic Acid 1 Mg Tablet) 1 mg PO DAILY [facility] Gabapentin (Gabapentin 300 Mg Capsule) 600 mg PO TID [facility] Haloperidol Lactate (Haloperidol Lactate 5 Mg/Ml Vial) 2 mg IV Q4HP PRN PRN Reason: ANXIETY/SEDATION Dexmedetomidine HCl 400 mcg/ (Premix) 100 mls @ 4.121 mls/hr IV .Q24H [facility]; Protocol Last Admin: 09/04/20 16:42 Dose: 0.8 mcg/kg/hr, 16.484 mls/hr Documented by: Thiamine HCl 100 mg/ Sodium (Chloride) 51 mls @ 50 mls/hr IV DAILY [facility] Sodium Chloride (Sodium Chloride 0.9%) 1,000 mls @ 75 mls/hr IV .[id number] [facility] Last Admin: 09/04/20 17:43 Dose: 75 mls/hr Documented by: Labetalol HCl (Labetalol 5 Mg/Ml Ml) 10 mg IV Q10M PRN PRN Reason: Blood Pressure Lorazepam (Lorazepam 2 Mg/Ml Vial) 1 mg IV Q6H [facility] Methylprednisolone Sodium Succinate (Methylprednisolone Sod Succ 40 Mg/Ml Vial) 40 mg IV DAILY [facility] Metoprolol Tartrate (Metoprolol Tartrate 50 Mg Tablet) 50 mg PO BID [facility] Omeprazole (Omeprazole 20 Mg Capsule) 40 mg PO ACB [facility] Ondansetron HCl (Ondansetron 4 Mg/2 Ml Vial) 4 mg IV Q6HP PRN PRN Reason: Nausea And Vomiting Oxycodone/Acetaminophen (Oxycodone/Apap 10/325mg Tablet) 1 tab PO Q4-6HP PRN; Protocol PRN Reason: Pain Mirabegron [ Myrbetriq] 25 Mg Tablet Extended Release 1 dose PO DAILY [facility] Polyethylene Glycol (Polyethylene Glycol 3350 17 Gm Packet) 17 gm PO DAILY [facility] Sodium Chloride (0.9 % Sodium Chloride 10 Ml Syringe) 10 ml IV Q8 [facility] Venlafaxine HCl (Venlafaxine 75 Mg Cap.Xl.24h) 75 mg PO DAILY [facility] ABG Interpretation ABG results: 09/03/20 22:09 ABG pH 7.41 ABG pCO2 43.0 ABG pO2 69.0 ABG HCO3 26.7 ABG Total CO2 28.0 ABG O2 Saturation 92.3 ABG Base Excess 2 ABG Methemoglobin 0.3 A/P Narrative A/P Narrative: Assessment: 60 year old female history of laryngeal mass status post resection about a year ago (patient says mass was benign), hypertension, hyperlipidemia, chronic pain, GERD, depression, obesity, approximately 35 pack year smoking history who initially presented to the emergency department for progressive shortness of breath then found to have severe hyponatremia. #Upper airway compromise from unknown cause s/p intubation and mechanical ventilation #Euvolemic hyponatremia, improving possibly from chronic alcohol use #Possible alcohol withdrawal #Abnormal CT chest: severe distal right mainstem bronchus narrowing, moderate left mainstem bronchus narrowing. Tracheomalacia? #Right periorbital edema from fall #Hypertension #Hyperlipidemia #Possible obstructive sleep apnea #GERD #Overactive bladder. #Depression #Chronic pain #Alcohol use disorder #Tobacco use disorder #Obesity Plan -Mechanical ventilation currently on PRVC RR 18, TV 350, FIO2 30, PEEP 8. -Precedex for sedation, Fentanyl IV prn for pain. -CIWA protocl with Ativan Q6 hrs and prn for alcohol withdrawl. -Resume NS at 75, closely monitor Na correction, goal of < 8 mEq/24 hrs. -Follow TTE ECHO results. -Solumedrol 40 mg IV daily. -Scheduled duonebs and albuterol nebs prn. -Start Lopressor 50 mg BID, d/c Toprol for NG tube. -Start Diltiazem 60 BID, discontinue Diltiazem SR for NG tube. -Continue home Atorvastatin, Gabapentin, Prilosec, Mirabegron, Venlafaxine. -RT following. -Nutrition consult for tube feeding. -DVT ppx: Lovenox SQ -Code status: Full -Disposition: Transfer to a higher level of care ICU when a bed is available. Time Spent With Patient Time: Total time spent is greater than 50% in coordination of care (as documented) at patient's floor/unit and/or counseling patient: QUALITY VTE Deep Vein Thrombosis/Pulmonary Embolism Present on Admission: No
[2020-09-04] MEDS ORDERED: LORazepam 2 MG/ML VIAL IV PRN (18:50)
[2020-09-04 19:05] LABS: Prealbumin 18.3 mg/dL (20.0-40.0)
[2020-09-04 19:16] LABS: ALT/SGPT 20 U/L (<40); AST/SGOT 41 U/L (<32); Albumin 3.6 gm/dL (3.2-5.2); Albumin/Globulin Ratio 1.4 (1.0-2.3); Alkaline Phosphatase 82 U/L (39-117); Bilirubin,Direct < 0.2 mg/dL (0-0.3); Bilirubin,Total 0.4 mg/dL (0.1-1.0); Blood Urea Nitrogen 6 mg/dL (6-20); Calcium 8.4 mg/dL (8.6-10.4); Carbon Dioxide 28 mmol/L (22-30); Chloride 75 mmol/L (96-108); Globulin 2.6 gm/dL (2.2-3.7); Glomerular Filtration Rate 114; Glucose 155 mg/dL (70-105); Lactate Dehydrogenase 279 U/L (135-225); Phosphorous 3.2 mg/dL (2.5-4.5); Triglycerides 90 mg/dL (<150); Uric Acid 4.3 mg/dL (2.5-8.0)
[2020-09-04] MEDS ORDERED: POTASSIUM CHLORIDE 20 MEQ PACKET PO ONE (19:47)
[2020-09-04] MEDS ORDERED: 0.9 % SODIUM CHLORIDE 500 ML IV ONE (19:54)
[2020-09-04] MEDS: 0.9 % SODIUM CHLORIDE 1,000 ML IV SCH (19:58)
[2020-09-04] MEDS: LORazepam 2 MG/ML VIAL IV SCH (20:04)
[2020-09-04] MEDS: DILTIAZEM 30 MG TABLET PO SCH (20:57)
[2020-09-04] MEDS ORDERED: ATORVASTATIN 20 MG TABLET PO SCH (21:00)
[2020-09-04] MEDS: METOPROLOL TARTRATE 50 MG TABLET PO SCH (21:00)
[2020-09-04] MEDS: CHLORHEXIDINE GLUCONATE 1 ML ORAL.SOL SWABMOUTH SCH (21:02)
[2020-09-04] MEDS ORDERED: DEXMEDETOMIDINE 100 ML IV ONE (21:28)
[2020-09-05] MEDS: LORazepam 2 MG/ML VIAL IV SCH ×3 (02:12→14:48)
[2020-09-05] MEDS: fentaNYL 100 MCG/2 ML VIAL IV PRN ×4 (03:30→16:54)
[2020-09-05] MEDS: DEXMEDETOMIDINE 400 MCG in PREMIX 1 BAG IV SCH ×3 (03:55→15:15)
[2020-09-05] MEDS: 0.9 % SODIUM CHLORIDE 1,000 ML IV SCH ×2 (04:19→14:37)
[2020-09-05] MEDS: 0.9 % SODIUM CHLORIDE 10 ML SYRINGE IV SCH ×2 (06:09→13:43)
[2020-09-05 06:20] LABS: Basophils # (Auto) 0.01 K/mcL (0.00-0.20); Basophils % (Auto) 0.1 % (0.0-2.0); Eosinophils # (Auto) 0.01 K/mcL (0.00-0.70); Eosinophils % (Auto) 0.1 % (0.0-7.0); Hematocrit 37.4 % (36.0-48.0); Hemoglobin 12.7 g/dL (12.0-15.0); Lymphocytes # (Auto) 2.06 K/mcL (1.50-4.80); Mean Cell Volume 90.8 fL (80.0-100.0); Monocytes # (Auto) 1.21 K/mcL (0.10-0.90); Neutrophils % (Auto) 80.8 % (38.0-78.0); Platelet Count 262 K/mcL (140-440); RBC 4.12 M/mcL (4.00-5.20); Red Cell Distribution Width 12.3 % (11.5-14.5); WBC 17.2 K/mcL (4.5-11.0)
[2020-09-05 07:05] LABS: ALT/SGPT 18 U/L (<40); AST/SGOT 26 U/L (<32); Albumin 3.2 gm/dL (3.2-5.2); Albumin/Globulin Ratio 1.2 (1.0-2.3); Alkaline Phosphatase 82 U/L (39-117); Bilirubin,Direct < 0.2 mg/dL (0-0.3); Bilirubin,Total 0.3 mg/dL (0.1-1.0); Blood Urea Nitrogen 5 mg/dL (6-20); Calcium 8.6 mg/dL (8.6-10.4); Carbon Dioxide 25 mmol/L (22-30); Chloride 86 mmol/L (96-108); Globulin 2.7 gm/dL (2.2-3.7); Glomerular Filtration Rate 114; Glucose 124 mg/dL (70-105); Lactate Dehydrogenase 227 U/L (135-225); Phosphorous 2.7 mg/dL (2.5-4.5); Triglycerides 127 mg/dL (<150); Uric Acid 3.5 mg/dL (2.5-8.0)
[2020-09-05] MEDS ORDERED: OMEPRAZOLE 20 MG CAPSULE PO SCH (07:30)
--- NOTE | 2020-09-05 08:10 | XRay Report ---
CLINICAL INFORMATION: Mechanical ventilation COMPARISON: 09/03/2020 FINDINGS: NG and endotracheal tubes are in stable satisfactory position. Heart size, mediastinum and pulmonary vessels are normal. Minimal airspace disease in the bases likely reflects atelectasis. No change. Possible developing infiltrate in the suprahilar region of the right upper lobe. No effusion IMPRESSION: Possible developing vague infiltrate in the right suprahilar region. Interpreted and Authenticated by: Dennis Holley 09/05/20
[2020-09-05] MEDS ORDERED: LORazepam 2 MG/ML VIAL IV PRN (08:21)
[2020-09-05] MEDS ORDERED: THIAMINE 100 MG in 0.9 % SODIUM CHLORIDE 50 ML IV SCH (09:00)
[2020-09-05] MEDS ORDERED: ENOXAPARIN 40 MG/0.4 ML SYRINGE SQ SCH (09:00)
[2020-09-05] MEDS ORDERED: FOLIC ACID 1 MG TABLET PO SCH (09:00)
[2020-09-05] MEDS ORDERED: VENLAFAXINE 75 MG CAP.XL.24H PO SCH (09:00)
[2020-09-05] MEDS ORDERED: methylPREDNISolone SOD SUCC 40 MG/ML VIAL IV SCH (09:00)
[2020-09-05] MEDS ORDERED: POLYETHYLENE GLYCOL 3350 17 GM PACKET PO SCH ×2 (09:00)
[2020-09-05] MEDS: GABAPENTIN 300 MG CAPSULE PO SCH ×2 (09:25→15:48)
[2020-09-05] MEDS: DILTIAZEM 30 MG TABLET PO SCH (09:25)
[2020-09-05] MEDS: CHLORHEXIDINE GLUCONATE 1 ML ORAL.SOL SWABMOUTH SCH (09:26)
[2020-09-05] MEDS: METOPROLOL TARTRATE 50 MG TABLET PO SCH (09:26)
[2020-09-05] MEDS ORDERED: PANTOPRAZOLE 40 MG VIAL IV SCH (11:05)
[2020-09-05] MEDS: LORazepam 2 MG/ML VIAL IV PRN ×5 (11:46→17:46)
[2020-09-05] MEDS ORDERED: DEXTROSE 5% IN WATER 1,000 ML IV SCH (15:00)
--- NOTE | 2020-09-05 17:09 | Discharge Summary ---
Discharge Provider Provider Patient information: Note initiated : 09/05/20 at 4:58 pm Service Date, if different from initiated Date: [] Patient: Radha Valencia 60 y/o F admitted on 09/03/20 for low sodium. Chief Complaint: [] Date of admission: 09/03/20 12:20 Discharge date: 09/05/20 Primary care physician: Kayy Moore Consults: 09/03/20 Consult to Physician [CONS] Stat Comment: Consulting Provider: Francisco Couch Reason For Exam: Physician to Consult Discharge Meds Discharge Medications Home Medications fluticasone propionate 50 mcg/actuation nasal spray,suspension 2 spray INTRANASAL DAILY #36.4 ml 06/29/19 [Rx Confirmed 09/03/20 Last Taken Unknown] atorvastatin 20 mg tablet 20 mg PO HS #90 tab 11/26/19 [Rx Confirmed 09/03/20 Last Taken Unknown] metoprolol succinate 50 mg tablet,extended release 24 hr See Rx Instructions .ROUTE .COMPLEX #90 tab 04/24/20 [Rx Confirmed 09/03/20 Last Taken Unknown] omeprazole 40 mg capsule,delayed release 40 mg PO QDAY #90 cap 04/27/20 [Rx Confirmed 09/03/20 Last Taken Unknown] venlafaxine 75 mg capsule,extended release 24 hr See Rx Instructions .ROUTE .COMPLEX #90 cap 05/04/20 [Rx Confirmed 09/03/20 Last Taken Unknown] albuterol sulfate 90 mcg/actuation breath activated powder inhaler See Rx Instructions .ROUTE .COMPLEX #1 ea 07/04/20 [Rx Confirmed 09/03/20 Last Taken Unknown] diltiazem HCl 300 mg capsule,extended release 24 hr 300 mg PO QAM #90 cap 08/11/20 [Rx Confirmed 09/03/20 Last Taken Unknown] mirabegron 25 mg tablet,extended release 24 hr 25 mg PO Q24H #30 tab 08/11/20 [Rx Confirmed 09/03/20 Last Taken Unknown] oxycodone-acetaminophen 10 mg-325 mg tablet 1 tab PO Q4-6HP PRN #150 tab 08/24/20 [Rx Confirmed 09/03/20 Last Taken Unknown] gabapentin 600 mg tablet See Rx Instructions .ROUTE .COMPLEX #90 tab 09/01/20 [Rx Confirmed 09/03/20 Last Taken Unknown] albuterol sulfate 2 puff INHALATION Q4H PRN #6.7 g 09/02/20 [Rx Confirmed 09/03/20 Last Taken Unknown] prednisone 60 mg PO QDAY #15 tab 09/02/20 [Rx Confirmed 09/03/20 Last Taken Unknown] COURSE Hospital Course Hospital course: Mrs. Valencia is a 60 year old female history of bilateral Patrick's edema and left vocal cord nodule s/p resection, hypertension, hyperlipidemia, chronic pain, GERD, depression, alcohol use disorder who presented to the emergency department yesterday for shortness of breath. Patient was discharged to home with steroids and inhalers, laboratory work-up revealed severe hyponatremia therefore the patient was called to return to the emergency department and hospital medicine was asked to admit the patient for hyponatremia. When I saw the patient she explained that she has been feeling chronically more short of breath for about and that has been associated with severe fatigue and daytime sleepiness. She has also been experiencing bilateral lower extremity edema. In the emergency department, patient's vitals were stable on room air however soon after admission, she did have hypoxia when she fell asleep therefore placed on some oxygen supplementation. 09/[address] neck and CTA chest ordered shortly after admission, no mass noted on in the larynx area, notable for right and left main stem bronchi of uncertain etiology. After the CT the patient developed progressively worsening dyspnea and difficulty breathing and required intubation for airway protection. The intubation was difficult and performed by anesthesiology under direct visualization with a GlideScope that showed friable tissue and abnormal landmarks. A #6 endotracheal tube was required for difficult tube placement, the patient was placed on PRVC ventilation mode and Precedex for sedation. After intubation she has been ventilating and oxygenating well on minimal ventilator settings. Today decreased TV to 350, RR continues at 18 (slightly overbreathing), FIO2 30 and PEEP 8. Sodium correction slowed today with D5 and also one dose of Desmopressin. Collateral information family confirms a history of heavy alcohol intake which could explain hyponatremia as sodium corrected easily with IV fluid. Possible alcohol withdrawal today therefore started scheduled Ativan IV while on Precedex infusion. Anesthesia recommends against attempts at extubation at this facility and feels the patient will require a tracheostomy. Multiple facilities contacted for transfer to a higher level of care, no ICU beds available. TTE ECHO ordered. Changed Toprol to Lopressor and long acting Cardizem to short acting Cardizem so medications can be given via NG. Nutrition consulted, started tube feeding. 09/05 Concern for alcohol withdrawal probably partially masked by precedex for sedation, decreased precedex dose and increasing dose of ativan IV prn. Agitation responds well to ativan IV prn. ABG today shows stable ventilation and oxygenation today on the ventilator with PRVC mode. Pressure support for awhile this morning during sedation vacation then SIMV mode for several hours before resuming PRVC mode. Following commands during sedation vacation and seems to understand ongoing attempts to transfer to higher level of care and nods in agreement for transfer. Sodium correcting up to 126 mEq, started D5 to slow correction rate to keep within goal correction rate of < 8mEq/24 hrs. Leukocytosis likely steroid induced due to Solumedrol however chest xray shows a vague infiltrate in the right suprahilar region, plan to repeat xray tomorrow morning. No change in respiratory status or fevers to suggest ventilator associated pneumonia. ECHO report resulted LVEF 68%, normal diastolic function, no wall motion abnormalities, no significant valvulopathy. Ongoing attempts to transfer the patient to a higher level of care. [facility] accepted the patient for direct transfer. [facility] notified for transport, the patient was discharged with [facility] to [facility] ICU. Discharge diagnosis: Acute respiratory failure secondary to upper airway obstruction Secondary discharge diagnosis: Severe hyponatremia probably from chronic alcohol intake Alcohol withdrawal Hypertension History of Patrick's edema and left vocal cord nodule s/p resection (reportedly benign) Alcohol use disorder Tobacco use disorder Obesity Time Spent with Patient Time attestation: Total time spent providing and/or coordinating discharge services: EXAM Constitutional Vitals: Temp Pulse Resp BP Pulse Ox 98.1 F 65 20 170/95 98 09/05/20 12:01 09/05/20 04:40 09/05/20 15:15 09/05/20 12:01 09/05/20 16:00 Additional findings Additional findings: Physical exam Head: Atraumatic, normal inspection. Eyes: right periorbital edema improved from admission. Neck: full ROM Respiratory: Intubated and mechanically ventilated. Cardiovascular: normal rate and rhythm, S1, S2. GI/Abdominal: protuberant abdomen, soft, nontender, no guarding. : Robles catheter Extremities: mild bilateral lower extremity edema Neurological: CN II-XII intact, follows commands and intact motor during sedation vacation Skin: warm, normal color Discharge Data Data Completed and Pending Labs on day of discharge: Labs from last 24 hours 09/05/20 09/05/20 09/05/20 16:35 13:39 10:03 WBC RBC Hgb Hct MCV MCH MCHC RDW Plt Count MPV Neut % (Auto) Lymph % (Auto) Dent % (Auto) Eos % (Auto) Baso % (Auto) Lymph # (Auto) Dent # (Auto) Eos # (Auto) Baso # (Auto) Absolute Neutrophils Sodium Pending 126 L 126 L Potassium Chloride Carbon Dioxide Anion Gap BUN Creatinine GFR Calculation Glucose Uric Acid Calcium Phosphorus Magnesium Total Bilirubin Direct Bilirubin GGT AST ALT Alkaline Phosphatase Lactate Dehydrogenase Total Protein Albumin Globulin Albumin/Globulin Ratio Prealbumin Triglycerides 09/05/20 09/05/20 09/05/20 05:34 05:33 05:32 WBC 17.2 H RBC 4.12 Hgb 12.7 Hct 37.4 MCV 90.8 MCH 30.8 MCHC 34.0 RDW 12.3 Plt Count 262 MPV 9.0 Neut % (Auto) 80.8 H Lymph % (Auto) 12.0 L Dent % (Auto) 7.0 Eos % (Auto) 0.1 Baso % (Auto) 0.1 Lymph # (Auto) 2.06 Dent # (Auto) 1.21 H Eos # (Auto) 0.01 Baso # (Auto) 0.01 Absolute Neutrophils 13.88 H Sodium 123 L 122 L Potassium 3.9 Chloride 86 L Carbon Dioxide 25 Anion Gap 12.0 BUN 5 L Creatinine 0.4 L GFR Calculation 114 Glucose 124 H Uric Acid 3.5 Calcium 8.6 Phosphorus 2.7 Magnesium 2.0 Total Bilirubin 0.3 Direct Bilirubin < 0.2 GGT 39 H AST 26 ALT 18 Alkaline Phosphatase 82 Lactate Dehydrogenase 227 H Total Protein 5.9 Albumin 3.2 Globulin 2.7 Albumin/Globulin Ratio 1.2 Prealbumin Triglycerides 127 09/05/20 09/04/20 09/04/20 02:07 22:03 18:10 WBC RBC Hgb Hct MCV MCH MCHC RDW Plt Count MPV Neut % (Auto) Lymph % (Auto) Dent % (Auto) Eos % (Auto) Baso % (Auto) Lymph # (Auto) Dent # (Auto) Eos # (Auto) Baso # (Auto) Absolute Neutrophils Sodium 119 L* 118 L* 114 L* Potassium Chloride Carbon Dioxide Anion Gap BUN Creatinine GFR Calculation Glucose Uric Acid Calcium Phosphorus Magnesium Total Bilirubin Direct Bilirubin GGT AST ALT Alkaline Phosphatase Lactate Dehydrogenase Total Protein Albumin Globulin Albumin/Globulin Ratio Prealbumin Triglycerides 09/04/20 09/04/20 16:00 14:00 WBC RBC Hgb Hct MCV MCH MCHC RDW Plt Count MPV Neut % (Auto) Lymph % (Auto) Dent % (Auto) Eos % (Auto) Baso % (Auto) Lymph # (Auto) Dent # (Auto) Eos # (Auto) Baso # (Auto) Absolute Neutrophils Sodium 115 L* 115 L* Potassium 3.2 L Chloride 75 L Carbon Dioxide 28 Anion Gap 12.0 BUN 6 Creatinine 0.4 L GFR Calculation 114 Glucose 155 H Uric Acid 4.3 Calcium 8.4 L Phosphorus 3.2 Magnesium 1.9 Total Bilirubin 0.4 Direct Bilirubin < 0.2 GGT 41 H AST 41 H ALT 20 Alkaline Phosphatase 82 Lactate Dehydrogenase 279 H Total Protein 6.2 Albumin 3.6 Globulin 2.6 Albumin/Globulin Ratio 1.4 Prealbumin 18.3 L Triglycerides 90 Preliminary micro results at discharge 09/03/20 20:03 Urine Culture - Preliminary Urine - Clean Void Mid-Stream Discharge Plan Patient/Caregiver Discharge Instructions Instructions: Bowel Obstruction (DC) Prescriptions: Continued fluticasone propionate 50 mcg/actuation spray,suspension 2 spray INTRANASAL DAILY Qty: 36.4 RF: 1 atorvastatin 20 mg tablet 20 mg PO HS Qty: 90 RF: 3 metoprolol succinate 50 mg tablet extended release 24 hr See Rx Instructions .ROUTE .COMPLEX Qty: 90 RF: 2 venlafaxine 75 mg capsule,extended release 24hr See Rx Instructions .ROUTE .COMPLEX Qty: 90 RF: 1 ProAir RespiClick 90 mcg/actuation aerosol powdr breath activated See Rx Instructions .ROUTE .COMPLEX Qty: 1 RF: 1 oxycodone-acetaminophen 10-325 mg tablet 1 tab PO Q4-6HP PRN (Reason: Pain) Qty: 150 RF: 0 gabapentin 600 mg tablet See Rx Instructions .ROUTE .COMPLEX Qty: 90 RF: 0 omeprazole 40 mg capsule,delayed release(DR/EC) 40 mg PO QDAY Qty: 90 RF: 3 Myrbetriq 25 mg tablet extended release 24 hr 25 mg PO Q24H Qty: 30 RF: 3 diltiazem HCl 300 mg capsule,extended release 24hr 300 mg PO QAM Qty: 90 RF: 3 albuterol sulfate 90 mcg/actuation HFA aerosol inhaler 2 puff inhalation Q4H PRN (Reason: shortness of breath or wheezing) Qty: 6.7 RF: 0 prednisone 20 mg tablet 60 mg PO QDAY Qty: 15 RF: 0 Follow Up Plan Follow up with: Kayy Moore ARNP [Primary Care Provider] - Patient Disposition: [facility] Prognosis: Fair Discharge Orders: Discharge Order (Routine); Ordered 09/05/20 Ordered By: Francisco PHAM VTE Deep Vein Thrombosis/Pulmonary Embolism Present on Admission: No
== END 2020-09-05 18:13 | disposition short-term general hospital (02) ==
LOC: ED 09:54 → ICU 12:20
PROVIDERS: ADMIT Internal Medicine; ATTEND Internal Medicine